=== PATIENT | female | born 1990 | race Caucasian/White ===

== ENCOUNTER 2017-02-03 14:11 | Emergency (ER) | payer OTHER ==
[~2017-02-03] VITALS: Ht 167.6 cm; Wt 62.0 kg
[~2017-02-03 14:11] MED LIST: AMPI500C2 PO
[2017-02-03 14:19] VITALS: BP 139/82
[2017-02-03] MEDS ORDERED: NAPR550T30 PO (14:22)
[2017-02-03 14:55] LABS: BLOOD UREA NITROGEN 17 mg/dL (7-18)
== END 2017-02-03 15:34 | disposition home or self-care (01) ==
LOC: ED 15:24
DX: R55 Syncope and collapse (principal); E16.2 Hypoglycemia, unspecified; R53.1 Weakness
CPT/HCPCS: 36415; 80048; 82040; 82962; 83735; 84703; 85025; 93005; 99285

== ENCOUNTER → 2017-02-13 | Outpatient (CLI) | payer OTHER ==
[~2017-02-13] MED LIST changes: +NAPR550T30 PO
== END | disposition home or self-care (01) ==
LOC: CFH 09:27
PROVIDERS: ATTEND Obstetrics & Gynecology
DX: N94.4 Primary dysmenorrhea (principal)
CPT/HCPCS: 76830

== ENCOUNTER → 2018-01-20 | Outpatient (CLI) | payer OTHER ==
[~2018-01-20] MED LIST changes: +NAPR-850 PO; -NAPR550T30 PO
[2018-01-20 19:50] LABS: FREE T4 (FREE THYROXINE) 1.05 ng/dL (0.76-1.46); THYROID STIMULATING HORMONE 7.46 mIU/L (0.358-3.740)
== END | disposition home or self-care (01) ==
LOC: LAB 19:16
PROVIDERS: ATTEND Internal Medicine
DX: R94.6 Abnormal results of thyroid function studies (principal)
CPT/HCPCS: 36415; 84439; 84443; 86376; 86800

== ENCOUNTER → 2018-11-17 | Outpatient (CLI) | payer OTHER ==
[2018-11-17 15:34] LABS: FREE T4 (FREE THYROXINE) 0.97 ng/dL (0.76-1.46); THYROID STIMULATING HORMONE 2.19 mIU/L (0.358-3.740)
== END | disposition home or self-care (01) ==
LOC: LAB 14:53
PROVIDERS: ATTEND Internal Medicine
DX: E55.9 Vitamin D deficiency, unspecified (principal); R94.6 Abnormal results of thyroid function studies
CPT/HCPCS: 36415; 82306; 84439; 84443

== ENCOUNTER → 2020-04-02 | Outpatient (CLI) | payer OTHER | END | disposition home or self-care (01) | LOC: LAB 10:25 | PROVIDERS: ATTEND Registered Nurse Lactation Consultant | DX: O26.851 Spotting complicating pregnancy, first trimester (principal); Z3A.00 Weeks of gestation of pregnancy not specified | CPT/HCPCS: 36415; 84703 ==

== ENCOUNTER 2020-05-30 12:02 | Outpatient (CLI) | payer OTHER | END 2020-05-30 23:59 | disposition home or self-care (01) | LOC: LAB 12:02 | PROVIDERS: ATTEND Advanced Practice Midwife | DX: Z02.9 Encounter for administrative examinations, unspecified (principal) ==

== ENCOUNTER 2020-07-29 15:41 | Outpatient (CLI) | payer OTHER | END 2020-07-29 23:59 | disposition home or self-care (01) | LOC: LAB 15:41 | PROVIDERS: ATTEND Obstetrics & Gynecology | DX: Z34.00 Encounter for supervision of normal first pregnancy, unspecified trimester (principal); Z3A.00 Weeks of gestation of pregnancy not specified | CPT/HCPCS: 36415; 82950; 85014; 85018; 85049; 86592 ==

== ENCOUNTER 2020-11-06 06:16 | Outpatient (CLI) | payer OTHER ==
[~2020-11-06] VITALS: Ht 167.6 cm; Wt 81.0 kg
[2020-11-06 06:30] VITALS: BP 113/75
[2020-11-06 06:44] LABS: BASOPHILS % (AUTO) 0 % (0-1); EOSINOPHILS % (AUTO) 1 % (1-7); LYMPHOCYTES % (AUTO) 13 % (22-44); MEAN CORPUSCULAR HEMOGLOBIN 33.2 pg (27.0-34.8); MEAN PLATELET VOLUME 9.1 fL (7.4-10.4); MONOCYTES % (AUTO) 5 % (2-9); NEUTROPHILS % (AUTO) 81 % (42-75); PLATELET COUNT 149 x10^3/uL (130-400); RED BLOOD COUNT 3.96 x10^6/uL (3.82-5.3); RED CELL DISTRIBUTION WIDTH 12.7 % (9.6-15.2)
[2020-11-06 06:44] LABS: MICROSCOPIC NOT IND
[2020-11-06 06:45] LABS: MD NO
== END 2020-11-06 08:00 | disposition home or self-care (01) ==
LOC: LDOP 06:16
PROVIDERS: ATTEND Obstetrics & Gynecology
DX: O62.9 Abnormality of forces of labor, unspecified (principal); Z3A.39 39 weeks gestation of pregnancy
CPT/HCPCS: 36415; 59025; 76770; 81003; 85025

== ENCOUNTER 2020-11-19 09:10 | Inpatient (IN) | payer OTHER ==
[~2020-11-19] VITALS: Ht 167.6 cm; Wt 80.2 kg
--- NOTE | 2020-11-19 09:44 | NUR ---
THIS IS A 29 YO F S/P 4 DAYS VAGINAL DELIVERY W/ C/O PROGRESSIVE WEAKNESS AND DISCOMFORT IN BILAT LWR EXTREMITIES. PT REPORTS RECEIVED EPIDURAL DURING LABOR. [id number]. 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 FAMILY AT BEDSIDE. JANNIE AKINS. AWAITING ED EVAL.
--- NOTE | 2020-11-19 10:02 | NUR ---
PT ASSISTED TO BEDSIDE COMMODE W/ ASSISTANCE OF FAMILY MEMBER. DOES NOT APPEAR TO BE WEIGHT BEARING.
--- NOTE | 2020-11-19 10:30 | NUR ---
PT RETURNED TO [facility] W/O INCIDENT. HAD SMALL FORMED BM. AT BEDSIDE FOR ED EVAL.
--- NOTE | 2020-11-19 10:35 | NUR ---
PER PT HAS DECREASED RECTAL TONE.
[2020-11-19] MEDS ORDERED: SODIUM CHLORIDE FLUSH 10ML SYR IVF ONE (11:00)
--- NOTE | 2020-11-19 11:02 | NUR ---
PIV STARTED. LAB IN ROOM.
--- NOTE | 2020-11-19 11:13 | NUR ---
PT IN RAD.
[2020-11-19 11:19] LABS: BASOPHILS % (AUTO) 0 % (0-1); EOSINOPHILS % (AUTO) 1 % (1-7); HCT (SEDRATE) 33.1 % (34.6-47.8); LYMPHOCYTES % (AUTO) 9 % (22-44); MEAN CORPUSCULAR HEMOGLOBIN 33.1 pg (27.0-34.8); MEAN CORPUSCULAR HGB CONC 34.2 g/dL (32.4-35.8); MEAN PLATELET VOLUME 8.8 fL (7.4-10.4); MONOCYTES % (AUTO) 3 % (2-9); NEUTROPHILS % (AUTO) 87 % (42-75); PLATELET COUNT 148 x10^3/uL (130-400); RED BLOOD COUNT 3.44 x10^6/uL (3.82-5.3); RED CELL DISTRIBUTION WIDTH 12.4 % (9.6-15.2)
[2020-11-19 11:21] LABS: MD NO
[2020-11-19 11:42] LABS: ALANINE AMINOTRANSFERASE 113 U/L (12-78); ALBUMIN 2.7 g/dL (3.4-5.0); ANION GAP 8 mmol/L (5-15); CALCIUM 8.2 mg/dL (8.5-10.1); CHLORIDE 107 mmol/L (98-107); CREATININE 0.65 mg/dL (0.55-1.02)
[2020-11-19 11:46] LABS: ALKALINE PHOSPHATASE 83 U/L (45-117); BILIRUBIN,TOTAL 0.3 mg/dL (0.2-1.0); CREATINE KINASE, TOTAL 63 U/L (26-192); TOTAL PROTEIN 6.8 g/dL (6.4-8.2)
[2020-11-19] MEDS ORDERED: ONDANSETRON 2MG/ML, 2ML ONE (11:57)
--- NOTE | 2020-11-19 11:59 | NUR ---
UNABLE TO STRAIGHT CATH X1. ASSISTANCE FROM JEFF HUFFMAN. ABLE TO OBTAIN URINE AFTER X4 ATTEMPTS. ERP UPDATED. PT TO MRI. JANNIE AKINS.
[2020-11-19] MEDS ORDERED: ONDANSETRON 2MG/ML, 2ML IVPush ONE (12:00)
[2020-11-19 12:17] LABS: MICROSCOPIC AUTO
--- NOTE | 2020-11-19 12:45 | NUR ---
PT IN MRI
--- NOTE | 2020-11-19 13:24 | NUR ---
PT IN MRI
--- NOTE | 2020-11-19 13:58 | NUR ---
PT RETURNED FROM MRI AT THIS TIME. VSS, NAOMIN.
[2020-11-19] MEDS ORDERED: DIPHENHYDRAMINE 25 MG CAPSULE PO PRN (14:30)
[2020-11-19] MEDS ORDERED: ACETAMINOPHEN 325 MG TABLET PO PRN (14:30)
[2020-11-19] MEDS ORDERED: FENTANYL PF 100 MCG/2ML ONE (14:43)
--- NOTE | 2020-11-19 14:57 | NUR ---
PT PROVIDED W/ WATER OK PER . PT UPDATED ON POC FOR LP, MRI THEN ADMIT.
[2020-11-19] MEDS ORDERED: SODIUM CHLORIDE FLUSH 10ML SYR IVF PRN (15:00)
--- NOTE | 2020-11-19 15:11 | NUR ---
ATTEMPT TO CALL REPORT [phone]
[2020-11-19] MEDS ORDERED: LIDOCAINE-MPF 1%, 5ML ONE (15:13)
--- NOTE | 2020-11-19 15:18 | NUR ---
ATTEMPT TO CALL REPORT [phone]
[2020-11-19] MEDS: FENTANYL PF 100 MCG/2ML IVPush PRN ×2 (15:30→17:06)
--- NOTE | 2020-11-19 15:41 | NUR ---
PT TO RAD FOR LP.
--- NOTE | 2020-11-19 15:48 | NUR ---
REPORT GIVEN TO YUNIOR HUFFMAN. PT IN RAD FOR LP.
--- NOTE | 2020-11-19 16:22 | NUR ---
HOSPITAL BED BROUGHT OVER TO [facility] FOR PT.
--- NOTE | 2020-11-19 16:35 | NUR ---
PER RAD PT WENT TO MRI S/P LP.
--- NOTE | 2020-11-19 17:06 | NUR ---
PT HAS C/O PAIN IN MRI. PT MEDICATED IN MRI W/ 50MCG OF FENTANYL PER EMAR.
[2020-11-19 17:07] LABS: GLUCOSE, CSF 45 mg/dL (40-80); TOTAL PROTEIN,CSF 34 mg/dL (15-45)
[2020-11-19] MEDS ORDERED: GADOTERATE 10 MMOL/20ML SYR ONE (17:19)
--- NOTE | 2020-11-19 17:33 | NUR ---
PT IN MRI
--- NOTE | 2020-11-19 18:08 | NUR ---
PT TRANSPORTED TO THE FLOOR AT THIS TIME.
[2020-11-19 18:10] VITALS: BP 106/64
[2020-11-19] MEDS: IBUPROFEN 600 MG TABLET PO PRN (18:31)
[2020-11-19 19:42] LABS: C-REACTIVE PROTEIN, QUANT 5.4 mg/dL (0.02-0.49)
[2020-11-19 19:57] LABS: FREE T4 (FREE THYROXINE) 1.16 ng/dL (0.76-1.46)
[2020-11-19 20:11] VITALS: BP 110/70
[2020-11-20 02:10] VITALS: BP 93/54
[2020-11-20] MEDS: IBUPROFEN 600 MG TABLET PO PRN ×3 (04:18→20:53)
[2020-11-20 07:27] VITALS: BP 107/71
[2020-11-20] MEDS: PRENATAL VIT/IRON/FA 1 EACH TABLET PO SCH (07:58)
[2020-11-20 11:42] VITALS: BP 121/79
[2020-11-20] MEDS: GABAPENTIN 300 MG CAPSULE PO SCH ×2 (11:53→20:40)
[2020-11-20] MEDS ORDERED: LORazepam 2 MG/ML, 1ML IVPush ONE (12:00)
[2020-11-20] MEDS ORDERED: GADOTERATE 10 MMOL/20ML SYR ONE (14:34)
[2020-11-20 18:51] VITALS: BP 121/85
[2020-11-20] MEDS: SENNA/DOCUSATE TABLET PO SCH (21:07)
[2020-11-21 02:00] VITALS: BP 117/65
[2020-11-21] MEDS: IBUPROFEN 600 MG TABLET PO PRN ×2 (08:29→20:29)
[2020-11-21] MEDS: GABAPENTIN 300 MG CAPSULE PO SCH ×2 (08:29→20:30)
[2020-11-21] MEDS: PRENATAL VIT/IRON/FA 1 EACH TABLET PO SCH (08:29)
[2020-11-21] MEDS: SENNA/DOCUSATE TABLET PO SCH (08:33)
[2020-11-21] MEDS ORDERED: MEDROL 4MG DOSEPAK PO SCH (09:00)
[2020-11-21 09:06] VITALS: BP 120/80
[2020-11-21 14:51] VITALS: BP 119/77
[2020-11-21 19:38] VITALS: BP 128/78
[2020-11-22 01:35] VITALS: BP 130/79
[2020-11-22 07:53] VITALS: BP 116/75
[2020-11-22] MEDS: PRENATAL VIT/IRON/FA 1 EACH TABLET PO SCH (08:55)
[2020-11-22] MEDS: GABAPENTIN 300 MG CAPSULE PO SCH (08:56)
[2020-11-22] MEDS: SENNA/DOCUSATE TABLET PO SCH (08:56)
[2020-11-22] MEDS ORDERED: PREN-75 PO (11:14)
[2020-11-22] MEDS ORDERED: GABA300C PO (11:14)
[2020-11-22 12:19] LABS: ANA SCREEN NEGATIVE (Negative)
== END 2020-11-22 13:20 | disposition home or self-care (01) | DRG 776 ==
LOC: SUATTDRO 14:19 → ED 14:44 → EDIP 15:06 → 4WST 18:06 → DCLOUNGE 11-22 13:14
PROVIDERS: ADMIT Internal Medicine; ATTEND Internal Medicine
PROC: 0T9B70Z Drainage of Bladder with Drainage Device, Via Natural or Artificial Opening (ICD-10-PCS; principal; 2020-11-19)
PROC: 009U3ZX Drainage of Spinal Canal, Percutaneous Approach, Diagnostic (ICD-10-PCS; 2020-11-19)
PROC: B01B1ZZ Fluoroscopy of Spinal Cord using Low Osmolar Contrast (ICD-10-PCS; 2020-11-19)
DX: O99.355 Diseases of the nervous system complicating the puerperium (principal); Z82.0 Family history of epilepsy and other diseases of the nervous system; G62.9 Polyneuropathy, unspecified; O99.53 Diseases of the respiratory system complicating the puerperium; J45.909 Unspecified asthma, uncomplicated
CPT/HCPCS: 36415; 62328; 70450; 70544; 70553; 72141; 72146; 72147; 72148; 72149; 80053; 81001; 82550; 82945; 83605; 83735; 83880; 84157; 84439; 84443; 85025; 85651; 86038; 86140; 86645; 86695; 86696; 86762; 86777; 86778; 87040; 87070; 87086; 87205; 87252; 89051; 96374; G0378; J2405; J2930; J3010; J7509; A9575; J2060